=== PATIENT | male | born 1960 | race Caucasian/White ===

== ENCOUNTER → 2023-05-23 18:10 | Outpatient (REF) | payer BC, SELFPAY | LOC: MRI 3T 18:10 | PROVIDERS: ATTENDING PHYSICIAN Otolaryngology; FAMILY PHYSICIAN Nurse Practitioner Family | DX: H93.A3 Pulsatile tinnitus, bilateral (principal) | CPT/HCPCS: 70553; A9575 ==

== ENCOUNTER → 2023-05-30 11:34 | Outpatient (REF) | payer BC, SELFPAY | LOC: PAVMRI 11:34 | PROVIDERS: ATTENDING PHYSICIAN Otolaryngology; FAMILY PHYSICIAN Nurse Practitioner Family | DX: H93.A3 Pulsatile tinnitus, bilateral (principal) | CPT/HCPCS: 70544; 70547 ==

== ENCOUNTER → 2023-12-13 14:39 | Outpatient (REF) | payer BC, SELFPAY | LOC: RAD 14:39 | PROVIDERS: ATTENDING PHYSICIAN Neurological Surgery; FAMILY PHYSICIAN Family Medicine | DX: M47.816 Spondylosis without myelopathy or radiculopathy, lumbar region (principal); Z98.890 Other specified postprocedural states; Z98.1 Arthrodesis status | CPT/HCPCS: 72131 ==

== ENCOUNTER → 2023-12-29 06:51 | Outpatient (REF) | payer BC, SELFPAY | LOC: PAVMRI 06:51 | PROVIDERS: ATTENDING PHYSICIAN Neurological Surgery; FAMILY PHYSICIAN Family Medicine | DX: M47.816 Spondylosis without myelopathy or radiculopathy, lumbar region (principal); Z98.890 Other specified postprocedural states | CPT/HCPCS: 72148 ==

== ENCOUNTER → 2024-02-02 09:46 | Outpatient (REF) | payer BC, SELFPAY | LOC: MRI 3T 09:46 | PROVIDERS: ATTENDING PHYSICIAN Psychiatry & Neurology Neurology | DX: R93.89 Abnormal findings on diagnostic imaging of other specified body structures (principal) | CPT/HCPCS: 70553; A9575 ==